=== PATIENT | female | born 1980 | race Two or more races ===

== ENCOUNTER 2017-07-12 06:33 | Emergency (ER) | payer SELFPAY ==
[~2017-07-12] VITALS: Ht 165.1 cm; Wt 72.1 kg
--- NOTE | 2017-07-12 06:45 | NUR ---
PT [facility]B LAFD FOR SYNCOPAL EPISDOE, A/O X 4, BREATHING EVEN/UNLABORED, SKIN WARM/DRY/INTACT, NO C/O PAIN AT THIS TIME, NAD NOTED, UPDATED ON PLAN OF CARE
--- NOTE | 2017-07-12 07:29 | NUR ---
REPORT TO RICARDO AVENDANO: PT SITTING IN BED, BREATHING EVEN/UNLABORED, NO C/O PAIN AT THIS TIME, UPDATED ON PLAN OF CARE
--- NOTE | 2017-07-12 07:30 | NUR ---
RECEIVED REPORT FOR STELLA.
[2017-07-12 08:00] VITALS: BP 124/71
--- NOTE | 2017-07-12 08:01 | NUR ---
IV removed. Catheter intact and site benign. Pressure and 4x4 applied to site. No bleeding noted. Patient discharged to home in stable condition. Written and verbal after care instructions given. Patient verbalizes understanding of instruction.
== END 2017-07-12 08:01 | disposition home or self-care (01) ==
LOC: ER 06:34
DX: R55 Syncope and collapse (principal)
CPT/HCPCS: 93005; 99283; A4606; Z7610